=== PATIENT | female | born 1995 | race African-American/Black ===

== ENCOUNTER 2017-04-03 14:32 | Emergency (ER) | payer OTHER ==
[~2017-04-03] VITALS: Ht 167.6 cm; Wt 68.0 kg
[2017-04-03 14:48] VITALS: BP 129/84
== END 2017-04-03 15:56 | disposition home or self-care (01) ==
LOC: ER 14:34
DX: L02.224 Furuncle of groin (principal)
CPT/HCPCS: A4606; Z7610

== ENCOUNTER 2017-11-11 18:03 | Emergency (ER) | payer OTHER ==
[~2017-11-11] VITALS: Ht 167.6 cm; Wt 73.9 kg
[2017-11-11 18:03] VITALS: BP 126/76
[2017-11-11 19:17] LABS: APPEARANCE,URINE Clear (CLEAR); BILIRUBIN,URINE SMALL (NEGATIVE); BLOOD, URINE Negative Ery/uL (NEGATIVE); COLOR,URINE Yellow (YELLOW); KETONES,URINE Trace (NEGATIVE); LEUKOCYTE ESTERASE ,URINE Negative (NEGATIVE); NITRITE, URINE Negative (NEGATIVE); PH,URINE 5.5 (5.0-8.0); PROTEIN,URINE Negative (NEGATIVE); UGLUCOSE Negative (NEGATIVE); UROBILINOGEN,URINE 0.2 EU/dL (0.2)
[2017-11-11 19:28] LABS: BACTERIA,URINE Few /HPF (None Seen); RBC,URINE 0-2 /HPF (0-2); SQUAMOUS EPITHELIAL CELL,UR Moderate /HPF (None Seen); WBC,URINE 0-2 /HPF (0-3)
[2017-11-11] MEDS ORDERED: AZITHROMYCIN 250 MG TABLET PO ONE (19:30)
[2017-11-11] MEDS ORDERED: CEFTRIAXONE 500 MG VIAL IM ONE (19:30)
[2017-11-11] MEDS ORDERED: CEFTRIAXONE 500 MG VIAL ONE (19:33)
[2017-11-11] MEDS ORDERED: LIDOCAINE HCL/PF 2 % 5ML SDV 5 ML VIAL ONE (19:33)
[2017-11-11] MEDS ORDERED: AZITHROMYCIN 250 MG TABLET ONE ×2 (19:33→19:35)
== END 2017-11-11 19:43 | disposition home or self-care (01) ==
LOC: ER 18:05
DX: N76.0 Acute vaginitis (principal); Z11.3 Encounter for screening for infections with a predominantly sexual mode of transmission
CPT/HCPCS: 81001; 84703; 87491; 87591; 96372; 99284; A4606; J0696; J3490; Z7610; 81000-TC

== ENCOUNTER 2018-05-19 16:02 | Emergency (ER) | payer OTHER ==
[~2018-05-19] VITALS: Ht 167.6 cm; Wt 59.0 kg
[2018-05-19 16:24] VITALS: BP 122/78
[2018-05-19] MEDS ORDERED: AZITHROMYCIN 250 MG TABLET PO STA (16:40)
[2018-05-19] MEDS ORDERED: CEFTRIAXONE 1 G VIAL IM ONE (17:00)
[2018-05-19] MEDS ORDERED: AZITHROMYCIN 250 MG TABLET ONE (17:10)
[2018-05-19] MEDS ORDERED: LIDOCAINE /MPF 1% VIAL 5 ML VIAL ONE (17:11)
[2018-05-19] MEDS ORDERED: CEFTRIAXONE 1 G VIAL ONE (17:11)
== END 2018-05-19 17:24 | disposition home or self-care (01) ==
LOC: ER 16:05
DX: J02.9 Acute pharyngitis, unspecified (principal); N89.8 Other specified noninflammatory disorders of vagina
CPT/HCPCS: 87070; 96372; 99283; A4606; J0696; J3490; Z7610

== ENCOUNTER 2018-07-01 21:51 | Emergency (ER) ==
[~2018-07-01] VITALS: Ht 167.6 cm; Wt 71.2 kg
[2018-07-01 22:00] VITALS: BP 128/78
== END 2018-07-01 23:48 | disposition home or self-care (01) ==
LOC: ER 21:53
DX: H10.89 Other conjunctivitis (principal); J03.80 Acute tonsillitis due to other specified organisms; B96.89 Other specified bacterial agents as the cause of diseases classified elsewhere; N83.202 Unspecified ovarian cyst, left side
CPT/HCPCS: A4606; Z7610

== ENCOUNTER 2019-03-13 02:02 | Emergency (ER) | payer OTHER ==
[~2019-03-13] VITALS: Ht 167.6 cm; Wt 72.6 kg
[2019-03-13 02:04] VITALS: BP 117/82
[2019-03-13] MEDS ORDERED: DEXAMETHASONE SOD PHOSPHATE 10 MG/ML VIAL ONE (02:23)
[2019-03-13] MEDS ORDERED: DEXAMETHASONE SOD PHOSPHATE 10 MG/ML VIAL IV ONE (02:30)
== END 2019-03-13 03:31 | disposition home or self-care (01) ==
LOC: ER 02:03
DX: J02.8 Acute pharyngitis due to other specified organisms (principal); B97.89 Other viral agents as the cause of diseases classified elsewhere; F12.10 Cannabis abuse, uncomplicated
CPT/HCPCS: 87070; 87880; 96374; 99283; J1100; 86403-TC

== ENCOUNTER 2019-07-03 20:32 | Emergency (ER) | payer OTHER ==
[~2019-07-03] VITALS: Ht 167.6 cm; Wt 72.6 kg
[2019-07-03 21:22] VITALS: BP 140/85
[2019-07-03] MEDS ORDERED: METRONIDAZOLE 500 MG TABLET ONE (22:26)
[2019-07-03] MEDS ORDERED: METRONIDAZOLE 500 MG TABLET PO ONE (22:30)
== END 2019-07-03 22:32 | disposition home or self-care (01) ==
LOC: ER 20:35
DX: N76.0 Acute vaginitis (principal)
CPT/HCPCS: 84703-TC